=== PATIENT | male | born 1985 | race Caucasian/White ===

== ENCOUNTER 2022-02-23 20:21 | Emergency (ER) | payer SELFPAY ==
[~2022-02-23] VITALS: Ht 152.4 cm; Wt 90.7 kg
[2022-02-23 20:44] VITALS: BP_SYST 125
[2022-02-23] MEDS ORDERED: LIDOCAINE 1%, 20 ML MDV 20 ML ONE (21:15)
[2022-02-23] MEDS ORDERED: BACITRACIN 1 GM OINT TP ONE (21:32)
[2022-02-23] MEDS ORDERED: CEPH-548 PO (21:34)
[2022-02-23] MEDS: BACITRACIN 1 GM OINT TP ONE (21:34)
[2022-02-23] MEDS: LIDOCAINE 1% 10 MG/ML, 20 ML MDV INJ ONE (21:34)
[2022-02-23 21:38] LABS: BASOPHILS # (AUTO) 0.1 K/uL (0.0-0.2); BASOPHILS % (AUTO) 0.7 % (0.0-2.0); EOSINOPHILS # (AUTO) 0.1 K/uL (0.0-0.4); HEMATOCRIT 46.6 % (36-54); HEMOGLOBIN 15.7 g/dL (14.0-18.0); LYMPHOCYTES % (AUTO) 22.2 % (20.5-51.5); MEAN CORPUSCULAR HEMOGLOBIN 31 pg (27-31); MEAN CORPUSCULAR HGB CONC 34 % (32-36); MEAN CORPUSCULAR VOLUME 93 fL (79.0-98.0); MONOCYTES # (AUTO) 0.9 K/uL (0.0-1.0); MONOCYTES % (AUTO) 9.9 % (1.7-9.3); NEUTROPHILS % (AUTO) 66.2 % (40.0-70.0); PLATELET COUNT (AUTO) 228 K/uL (130-430); RED BLOOD CELL COUNT(AUTO) 5.04 MIL/uL (4.2-6.2); RED CELL DISTRIBUTION WIDTH 13.6 % (9.0-15.0); WHITE BLOOD COUNT (AUTO) 9.1 K/uL (4.8-10.8)
[2022-02-23 22:03] LABS: CALCIUM 9.9 mg/dL (8.4-11.0); CREATININE 1.31 mg/dL (0.55-1.30); POTASSIUM 4.5 mmol/L (3.5-5.1)
[2022-02-23 22:06] LABS: TOTAL BILIRUBIN 0.4 mg/dL (0.0-1.0)
[2022-02-23 22:07] LABS: ALBUMIN 4.2 g/dL (3.4-4.8); URIC ACID 4.6 mg/dL (2.4-7.0)
[2022-02-23 23:17] VITALS: BP_SYST 118
[2022-02-23] MEDS: BACITRACIN ZINC 15 GM TOPICAL OINTMENT TP ONE (23:21)
== END 2022-02-23 23:17 | disposition home or self-care (01) ==
LOC: SED 20:21
DX: L03.031 Cellulitis of right toe (principal); Z79.899 Other long term (current) drug therapy
CPT/HCPCS: 10060; 36415; 73660; 80053; 84550; 85025; 87040; 99284; J2001